=== PATIENT | female | born 1960 | race Caucasian/White ===

== ENCOUNTER 2017-03-10 19:04 | Emergency (ER) | payer BC, OTHER ==
[~2017-03-10] VITALS: Ht 172.7 cm; Wt 90.1 kg
[2017-03-10] MEDS ORDERED: ASPIRIN 81 MG TABLET CHEW PO ONE (20:00)
[2017-03-10] MEDS ORDERED: LEVO125T5 PO (20:09)
[2017-03-10 20:13] LABS: BLOOD UREA NITROGEN 20 mg/dL (7-18)
[2017-03-10 20:17] LABS: IS PT STATUS REG ER OR PRE ER? YES
[2017-03-10] MEDS ORDERED: ASPIRIN 81 MG TABLET CHEW ONE (20:20)
[2017-03-10 22:20] LABS: IS PT STATUS REG ER OR PRE ER? YES
[2017-03-11 00:07] VITALS: BP 126/70
== END 2017-03-11 00:11 | disposition home or self-care (01) ==
LOC: ED 23:59
DX: R07.89 Other chest pain (principal)
CPT/HCPCS: 36415; 71010; 80048; 82040; 84484; 85025; 93005